=== PATIENT | male | born 1980 | race Caucasian/White ===

== ENCOUNTER 2017-01-05 12:02 | Emergency (ER) | payer BC | END 2017-01-05 13:44 | disposition home or self-care (01) | LOC: ER 12:02 | DX: S82.402A Unspecified fracture of shaft of left fibula, initial encounter for closed fracture (principal); S91.002A Unspecified open wound, left ankle, initial encounter; W01.0XXA Fall on same level from slipping, tripping and stumbling without subsequent striking against object, initial encounter; F17.210 Nicotine dependence, cigarettes, uncomplicated; Z88.1 Allergy status to other antibiotic agents | CPT/HCPCS: 73700; 99283-25 ==